=== PATIENT | male | born 1950 | race Caucasian/White ===

== ENCOUNTER 2022-08-27 14:43 | Outpatient (REF) | payer MEDICARE, MEDICAID, SELFPAY ==
--- NOTE | ~2022-08-27 | XR_ITS ---
EXAMINATION: XR ANKLE, LEFT CLINICAL INFORMATION: Tripped with left foot pain and swelling. COMPARISON: None available. TECHNIQUE: AP and lateral views of the left ankle. FINDINGS: There is soft tissue swelling seen about the lateral malleolus. No acute fracture or dislocation is evident. Mortise appears intact. Vascular calcifications present. Small Achilles calcaneal spur seen. There is some spurring seen dorsum of the proximal navicula. XR/XR ankle LT 2V IMPRESSION: Soft tissue swelling without evidence of acute fracture on this 2-view study.
== END 2022-08-27 14:44 | disposition home or self-care (01) ==
LOC: HO.HHCX 14:43
PROVIDERS: PCP Internal Medicine; Visit Provider Internal Medicine
DX: M79.672 Pain in left foot (principal)
CPT/HCPCS: 73600

== ENCOUNTER 2022-11-12 15:21 | Outpatient (REF) | payer MEDICARE, MEDICAID, SELFPAY ==
[2022-11-12 17:44] LABS: MANUAL DIFF FLAG NO
[2022-11-12 17:58] LABS: Basophils Percent Auto 0.6 % (0-2); Eosinophils Absolute Auto 0.1 X10*3/uL (0.0-0.4); Hematocrit 42.7 % (42.0-52.0); Hemoglobin 14.5 g/dl (14.0-18.0); Imm Gran Abs Auto 0.02 X10*3/uL (0.00-0.03); Imm Gran Pct Auto 0.4 % (0.0-0.4); Lymphocytes Absolute Auto 1.1 X10*3/uL (1.2-4.9); Lymphocytes Percent Auto 20.6 % (20-40); Mean Corpuscular Hemoglobin 31.3 pg (27.0-33.0); Mean Corpuscular Volume 92.2 fL (80.0-98.0); Monocytes Absolute Auto 0.4 X10*3/uL (0.1-1.2); Monocytes Percent Auto 7.2 % (2-11); Neutrophils Absolute Auto 3.7 x10*3/uL (2.0-8.3); Neutrophils Percent Auto 69.2 % (45-73); Platelet Count 181 X10*3/uL (160-400); Red Blood Count 4.63 X10*6/uL (4.60-5.80); Red Cell Distribution Width 12.3 % (11.0-16.0); White Blood Count 5.4 X10*3/uL (4.8-10.8)
[2022-11-12 18:50] LABS: Alanine Aminotransferase 11 U/L (0-40); Albumin Level 4.3 g/dL (3.5-5.0); Alkaline Phosphatase 75 U/L (39-117); Anion Gap 17 (12-20); Aspartate Amino Transferase 14 U/L (5-37); Blood Urea Nitrogen 16 mg/dL (9-16); Calcium 10.1 mg/dL (8.4-10.2); Carbon Dioxide 28 mmol/L (22-29); Chloride 99 mmol/L (96-108); Cholesterol 207 mg/dL; Estimated Glomerular Filt Rate > 60; Glucose Fasting 82 mg/dL (60-99); HDL Cholesterol 47 mg/dL; LDL Cholesterol Calculated 128 mg/dl; Potassium 3.8 mmol/L (3.3-5.1); Sodium 140 mmol/L (135-145); Total Protein 7.8 g/dL (6.5-8.0); Triglycerides 162 mg/dL
[2022-11-12 18:52] LABS: Prostate Specific Antigen 5.19 ng/mL (<0.05-4.0)
[2022-11-12 18:59] LABS: Bilirubin Total 1.3 mg/dL (0.0-1.0)
== END 2022-11-12 15:22 | disposition home or self-care (01) ==
LOC: HO.CHCLDS 15:21
PROVIDERS: Visit Provider Internal Medicine
DX: Z00.00 Encounter for general adult medical examination without abnormal findings (principal); Z12.5 Encounter for screening for malignant neoplasm of prostate; E78.00 Pure hypercholesterolemia, unspecified; I10 Essential (primary) hypertension
CPT/HCPCS: 36415; 80053; 80061; 84153; 84443; 85025

== ENCOUNTER 2024-07-20 14:00 | Outpatient (REF) | payer MEDICARE, MEDICAID, SELFPAY ==
[2024-07-20 18:03] LABS: Anion Gap 14 (12-20); Blood Urea Nitrogen 26 mg/dL (9-16); Calcium 9.7 mg/dL (8.4-10.2); Carbon Dioxide 31 mmol/L (22-29); Chloride 98 mmol/L (96-108); Estimated Glomerular Filt Rate 46; Glucose Random 92 mg/dL (60-115); Potassium 3.2 mmol/L (3.3-5.1); Sodium 140 mmol/L (135-145)
== END 2024-07-20 14:01 | disposition home or self-care (01) ==
LOC: HO.CHCLDS 14:00
PROVIDERS: PCP Internal Medicine; Visit Provider Nurse Practitioner
DX: I10 Essential (primary) hypertension (principal)
CPT/HCPCS: 36415; 80048

== ENCOUNTER 2024-08-20 15:17 | Outpatient (REF) | payer MEDICARE, MEDICAID, SELFPAY ==
--- OUTSIDE RECORDS SUMMARY | 2024-08-20 18:00 | XMS_ITS | Encounter Summary ---
Author Organization [employer] Address [address] [place] [address] 7 [place] [address] Care Team Providers Care Bulbs Farmworker Name Role Phone Babatunde Oliva MD Primary Care Provider Encounter Details Date Type Department Care Team (Late st Contact Info) Description 07/23/2022 Orders Only [facility] MED & PEDS [address] [place] [address] Susan Cedeno LPN Social History Tobacco Use Types Packs/Day Years Used Date Smoking Tobacco: Never Assessed Sex and Gender Information Value Date Recorded Sex Assigned at Male 02/26/2022 10:21 AM EDT Legal Sex Male 10:21 AM EDT Gender Identity Male 02/26/2022 10:21 AM EDT Sexual Orientation Straight 02/26/2022 10 :21 AM EDT documented as of this encounter Plan of Treatment Upcoming Encounters Date Type Department Care Team (Late st Contact Info) Description 11/20/2024 3:30 PM EDT Office Visit [facility] MED & PEDS [address] [place] [address] Babatunde Oliva MD [address] [place] [address] documented as of this encounter Visit Diagnoses Not on filedocumented in this encounter Care Teams Bulbs Farmworker Relationship Specialty Start Date End Date Babatunde Oliva MD [address] [place] [address] PCP - General Internal Medicine 04/29/18 documented as of this encounter
--- OUTSIDE RECORDS SUMMARY | 2024-08-20 18:00 | XMS_ITS | Encounter Summary ---
Author Organization [employer] Address [address] [place] [address] 7 [place] [address] Care Team Providers Care Route Deliverer Name Role Phone Babatunde Oliva MD Primary Care Provider [phone]- [phone] Encounter Details Date Type Department Care Team (Latest Contact Info) Description 10/21/2018 Abstract [facility] CONVERSIONS Dental, Provider, DDS Social History Tobacco Use Types Packs/Day Years [...] Description 11/20/2024 3:30 PM EDT Office Visit [facility] MED & PEDS [address] [place] [address] Babatunde Oliva MD [address] [place] [address] documented as of this encounter Visit Diagnoses Not on filedocumented in this encounter Care Teams Route Deliverer Relationship Specialty Start Date End Date Babatunde Oliva MD [address] [place] [address] PCP - General Internal Medicine 04/29/18 documented as of this encounter
--- OUTSIDE RECORDS SUMMARY | 2024-08-20 18:00 | XMS_ITS | Encounter Summary ---
Author Organization [employer] Address [address] [place] [address] 7 [place] [address] Care Team Providers Care General Assembler Installer Name Role Phone Babatunde Oliva MD Primary Care Provider [phone]- [phone] Reason for Referral * Medications - Pending Review Specialty Diagnoses / Procedures Referred By Last t Referred To Contact Diagnoses Dysuria Babatunde Oliva MD [address] [place] [address] Phone: tel: fax: Referral ID Status Reason Start Date Expiration Date V isits Requested Visits Authorized [id number] Pending Review 1 1 Encounter Details Date Type Department Care Team ([facility] st Contact Info) Description 08/11/2024 Orders Only [facility] MED & PEDS [address] [place] [address] Babatunde Oliva MD [address] [place], [place] [phone] Dysuria Social History Tobacco Use Types Packs/Day Years Used Date Smoking Tobacco: Former Cigarettes 1 10 Passive Smoke Exposure: Never Smokeless Tobacco: Never Comments:Quit smoking more t west 40 years ago. Alcohol Use Standard Drinks/Week Comments Yes 2 (1 standard drink = 0.6 oz pur e alcohol) Depression Answer Date Recorded Patient Health Questionnaire-9 Score 0 11/12/2022 Depression Answer Date Recorded Patient Health Questionnaire-2 Score 0 11/12/2022 Sex and Gender Information Value Date Recorded Sex Assigned at Male 02/26/2022 10:21 AM EDT Legal Sex Male 10:21 AM EDT Gender Identity Male 02/26/2022 10:21 AM EDT Sexual Orientation Straight 02/26/2022 10 :21 AM EDT documented as of this encounter Plan of Treatment Upcoming Encounters Date Type Department Care Team (Late st Contact Info) Description 11/20/2024 3:30 PM EDT Office Visit [facility] MED & PEDS [address] [place] [address] Babatunde Oliva MD [address] [place] [address] documented as of this encounter Visit Diagnoses Diagnosis Dysuria documented in this encounter Additional Health Concerns Assessment Noted Time PHQ-9 Depression Total Score: 0 11/13/19 23 3:12 PM EDT documented as of this encounter Care Teams General Assembler Installer Relationship Specialty Start Date End Date Babatunde Oliva MD [address] [place] [address] PCP - General Internal Medicine 04/29/18 documented as of this encounter
--- OUTSIDE RECORDS SUMMARY | 2024-08-20 18:00 | XMS_ITS | Encounter Summary ---
Author Organization [employer] Address [address] [place] [address] [address]t [place] [address] Care Team Providers Care City Planner Name Role Phone Babatunde Oliva MD Primary Care Provider Encounter Details Date Type Department Care Team (Late Contact Info) Description 07/23/2024 Orders Only [facility] MEDICINE [address] [place] [address] Babatunde Oliva MD [address] [place], [place] [phone] Hypokalemia (Primary Dx) Social History Tobacco Use Types Packs/Day Years [...] Encounters Date Type Department Care Team (Late Contact Info) Description 11/20/2024 3:30 PM EDT Office Visit [facility] MED & PEDS [address] [place], [place] [phone] Babatunde Oliva MD [address] [place] [address] documented as of this encounter Visit Diagnoses Diagnosis Hypokalemia- Primary Hypopotassemia documented in this encounter Additional Health Concerns Assessment Noted Time PHQ-9 Depression Total Score: 0 11/13/19 23 3:12 PM EDT documented as of this encounter Care Teams City Planner Relationship Specialty Start Date End Date Babatunde Oliva MD [address] [place] [address] [place] [address] PCP - General Internal Medicine 04/29/18 documented as of this encounter
--- OUTSIDE RECORDS SUMMARY | 2024-08-20 18:00 | XMS_ITS | Encounter Summary ---
Author Organization [employer] Address [address] [place] [address] 7t [place] [address] Care Team Providers Care Director Of Accreditation Name Role Phone Babatunde Oliva MD Primary Care Provider +1- [phone] Reason for Visit * Reason Onset Date Comments callback requested 03/31/2024 Encounter Details Date Type Department Care Team ([facility] st Contact Info) Description 03/31/2024 Telephone [facility] MEDICINE [address] [place] [address] Babatunde lOiva MD [address] [place] [address] callback requested Social History Tobacco Use Types Packs/Day Years [...] AM EDT documented as of this encounter Miscellaneous Notes * Telephone Encounter - Gulshan Waller - 03/31/2024 9:59 AM EST Tc from pt requesting a callback due to canceling apt from today 03/31/2024 , pt informed he's currently with no transportation. Callback number [phone] documented in this encounter Plan of Treatment Upcoming Encounters Date Type Department Care Team ([facility] st Contact Info) Description 11/20/2024 3:30 PM EDT Office Visit [facility] MED & PEDS [address] [place] [address] Babatunde Oliva MD [address] [place] [address] documented as of this encounter Visit Diagnoses Not on filedocumented in this encounter Additional Health Concerns Assessment Noted Time PHQ-9 Depression Total Score: 0 11/13/19 23 3:12 PM EDT documented as of this encounter Care Teams Director Of Accreditation Relationship Specialty Start Date End Date Babatunde Oliva MD [address] [place] [address] PCP - General Internal Medicine 04/29/18 documented as of this encounter
--- OUTSIDE RECORDS SUMMARY | 2024-08-20 18:00 | XMS_ITS | Clinical Summary ---
Author Organization [employer] Address [address] [place] [address] 7 [place] [address] Care Team Providers Care Flange Machine Operator Name Role Phone Babatunde Oliva MD Primary Care Provider Allergies No known active allergies Medications atorvastatin (Lipitor) 40 MG tablet 04/30/19 23 Active cyanocobalamin (Vitamin B-12) 100 MCG tablet Take 1 tablet by mouth in the morning. 02/03/20 22 Active Diclofenac Sodium (Voltaren) 1 % gelIndications: Left foot pain To apply to the affected area 2 times a day. 100 g 08/28/19 23 Active omeprazole (PriLOSEC) [address] capsule 07/23/19 23 Active omeprazole (PriLOSEC) [address] capsule TAKE 1 CAPSULE BY MOUTH TWICE DAILY BEFORE A MEAL 180 capsule 3 11/05/19 24 Active atropine 1 % ophthalmic solution Administer 1 drop into the left eye 3 times daily. 15 mL 12/05/19 24 025 Active losartan (Cozaar) 25 MG tabletIndicatio ns:Primary hypertension TAKE 1 TABLET(25 MG) BY MOUTH DAILY 90 tablet 3 07/18/19 25 Active hydroCHLOROthia zide 12.5 MG tablet TAKE 1 TABLET(12.5 MG) BY MOUTH EVERY DAY 90 tablet 1 08/08/19 25 Active cyanocobalamin (Vitamin B-12) 100 MCG tablet TAKE 1 TABLET BY MOUTH EVERY DAY 90 tablet 1 08/08/19 25 Active atorvastatin (Lipitor) 40 MG tablet TAKE 1 TABLET BY MOUTH EVERY NIGHT AT BEDTIME 90 tablet 1 08/08/19 25 Active potassium chloride CR (Klor-Con M20) 20 MEQ ER tabletIndicatio ns:Hypokalemia Take 1 tablet (20 mEq) by mouth Once per day. Do not crush or chew. 20 tablet 08/12/19 25 026 Active tadalafil (Cialis) 5 MG tabletIndicatio ns:Dysuria Take 1 tablet (5 mg) by mouth Once per day. 10 tablet 08/12/19 25 025 Active hydroCHLOROthia zide (HYDRODiuril) 12.5 MG tablet Take 1 tablet (12.5 mg) by mouth in the morning. 90 tablet 3 02/07/20 23 025 Discontinued(S shirin effects) hydroCHLOROthia zide (HYDRODiuril) 12.5 MG tablet TAKE 1 TABLET(12.5 MG) BY MOUTH EVERY DAY 90 tablet 1 08/06/19 24 025 Discontinued atorvastatin (Lipitor) 40 MG tablet TAKE 1 TABLET BY MOUTH EVERY NIGHT AT BEDTIME 90 tablet 1 02/03/20 24 025 Discontinued cyanocobalamin (Vitamin B-12) 100 MCG tablet TAKE 1 TABLET BY MOUTH EVERY DAY 90 tablet 1 02/03/20 24 025 Discontinued doxazosin (Cardura) 4 MG tabletIndicatio ns:Lower urinary tract symptoms (LUTS) TAKE 1 TABLET(4 MG) BY MOUTH AT BEDTIME 90 tablet 3 05/08/19 025 Discontinued(S shirin effects) potassium chloride CR (Klor-Con M20) 20 MEQ ER tabletIndicatio ns:Hypokalemia Take 1 tablet (20 mEq) by mouth Once per day. Do not crush or chew. 20 tablet 07/24/19 025 Discontinued(R eorder (will not trigger notification to Pharmacy)) tadalafil (Cialis) 5 MG tabletIndicatio ns:Dysuria Take 1 tablet (5 mg) by mouth Once per day. 10 tablet 08/12/19 025 Discontinued(R eorder (will not trigger notification to Pharmacy)) Active Problems Problem Noted Date Diagnosed Date Benign prostatic hyperplasia 06/25/2014 Hiatal hernia 06/25/2014 Hypercholesterolemia 06/25/2014 Hypertensive disorder 06/25/2014 Encounters Date Type Department Care Team Description 08/11/2024 11:15 AM EDT Office Visit [facility] MED & PEDS [address] [place] [address] Babatunde Oliva MD Dysuria (Primary Dx); Hypokalemia; Drug eruption 08/11/2024 Orders Only [facility] MED & PEDS [address] [place] [address] Babatunde Oliva MD Dysuria 08/11/2024 Travel 08/05/2024 Refill [facility] MED & PEDS [address] [place] [address] Babatunde Oliva MD 08/05/2024 Refill [facility] MED & PEDS [address] [place] [address] Shwetha Eugene MD 07/29/2024 2:45 PM EDT Clinical Support [facility] MED & PEDS [address] [place] [address] Karen Goss RN Primary hypertension 07/29/2024 Travel 07/23/2024 Telephone [facility] MED[facility] [address] [place] [address] Babatunde Oliva MD 07/23/2024 Telephone [facility] MED & PEDS [address] [place] [address] Babatunde Oliva MD 07/23/2024 Orders Only [facility] MED[facility] [address] [place] [address] Babatunde Oliva MD Hypokalemia (Primary Dx) 07/15/2024 4:20 PM EDT Office Visit [facility] [address] [place] [address] Primary hypertension (Primary Dx) 07/15/2024 Refill [facility] [address] [place] [address] Daly Wilder NP Primary hypertension 07/15/2024 Telephone [facility] MED & PEDS [address] [place] [address] Babatunde Oliva MD 07/10/2024 Population Health Risk Score Community [facility] () Department [address] [place] [phone] Provider, Population Health Generic 06/16/2024 Travel 06/16/2024 Telephone [facility] MED & PEDS [address] [place] [address] Babatunde Oliva MD No Show from Last 3 Months Social History Tobacco Use Types Packs/Day Years Used Date Smoking Tobacco: Former Cigarettes 1 10 Passive Smoke Exposure: Never Smokeless Tobacco: Never Tobacco Cessation:Counseling Given: Not Answered Comments:Quit smoking more than 40 years ago. Alcohol Use Standard Drinks/Week [...] Orientation Straight 02/26/2022 10 :21 AM EDT Last Filed Vital Signs Vital Sign Reading Time Taken Comments Blood Pressure 113/62 08/11/2024 11:05 AM EDT Pulse 78 08/11/2024 11:05 AM EDT Temperature 36.4 ??C (97.5 ??F) 08/11/2024 1 1:05 AM EDT Respiratory Rate 20 08/11/2024 11:0 5 AM EDT Oxygen Saturation 98% 08/11/2024 11: 05 AM EDT Inhaled Oxygen Concentration - - Weight 71.6 kg (157 lb 12.8 oz) 025 11:05 AM EDT Height 168 cm (5' 6.14 ) 08/11/2024 11: 05 AM EDT Body Mass Index 25.36 08/11/2024 11:05 AM EDT Plan of Treatment Upcoming Encounters Date Type Department Care Team ([facility] st Contact Info) Description 11/20/2024 3:30 PM EDT Office Visit [facility] MED & PEDS [address] [place] [address] Babatunde Oliva MD [address] [place] [address] Health Maintenance Due Date Last Done Comments CT Colonography 1952 Colonoscopy 1952 Colorectal Cancer Screening 1952 FIT DNA/Cologuard 1952 FIT 1952 FOBT 1952 SDOH Screening 1952 Sigmoidoscopy 1952 Alcohol/Substance Use Screening 1964 Hepatitis C Screening 01/24/1970 DTaP/Tdap/Td Vaccines (1 - Tdap) 01/24/1971 Pneumococcal Vaccine: 50+ Years (1 of 1 - PCV) 01/24/2002 Zoster Vaccines (1 of 2) 01/24/2002 Dental X-Ray: Full Mouth 04/19/2014 04/18/2011 Dental X-Ray: Bitewings 04/16/2019 04/15/20 18, 03/27/2017, 04/18/2011 Dental Oral Exam 03/14/2023 09/10/2022, , 04/15/2018, Additional history exists Dental Prophylaxis 09/24/2023 03/25/2023, 0 09/10/2022, 04/24/2019, Additional history exists Depression Screening 11/13/2023 11/12/2022, 11/13/19 23 COVID-19 Vaccine ( season) 2023 02/27/2021, 08/02/2020, 07/05/2020 Influenza Vaccine (#1) 2023 , 04/27/2019, 02/13/2018 Tobacco Screening 08/11/2025 08/11/2024 RSV Patients and Patients Aged 60 years or older (1 - 1-dose 75+ series) 01/24/2027 Lipid Panel 11/13/2027 11/12/2022, 08/17/2021 HIB Vaccines Aged Out No longer eligi ble based on patient's age to complete this topic HPV Vaccines Aged Out No longer eligi ble based on patient's age to complete this topic Hepatitis A Vaccines Aged Out No long er eligible based on patient's age to complete this topic Hepatitis B Vaccines Aged Out No long er eligible based on patient's age to complete this topic IPV Vaccines Aged Out No longer eligi ble based on patient's age to complete this topic Meningococcal Vaccine Aged Out No mahsa mitzy eligible based on patient's age to complete this topic RSV under 20 months Aged Out No longe r eligible based on patient's age to complete this topic Rotavirus Vaccines Aged Out No longer eligible based on patient's age to complete this topic Procedures Procedure Name Priority Date/Time Associated Diagnosis Comments BASIC METABOLIC PANEL Routine 07/20/2024 2:05 PM EDT Primary hypertension Full PROPHYLAXIS - ADULT Routine 03/25/2023 2:00 PM EST LIPID PANEL, STANDARD Routine 11/12/2022 3:27 PM EDT PERIODIC ORAL EVALUATION - ESTABLISHED PATIENT Routine 09/10/2022 3:00 PM EDT Alveolar bone loss with cratering History of periodontal disease BITEWINGS - 4 RADIOGRAPHIC IMAGES Routine 04/15/2018 12:00 AM EST INTRAORAL - COMPLETE SERIES OF RADIOGRAPHIC IMAGES Routine 04/18/2011 12:00 AM EST from Last 3 Months or Most Recently Relevant to Health Maintenance Results * (ABNORMAL) Basic Metabolic Panel (07/20/2024 2:05 PM EDT) Sodium 140 135 - 145 mmol/L [facility] Potassium 3.2(L) 3.3 - 5.1 mmol/L [facility] Chloride 98 96 - 108 mmol/L [facility] Carbon Dioxide 31(H) 22 - 29 mmol/L [facility] Anion Gap 14 12 - 20 [facility] Urea Nitrogen (BUN) 26(H) 9 - 16 mg/dL [facility] Creatinine, Serum 1.51(H) 0.5 - 1.4 mg/dL [facility] Estimated Glomerular Filt Rate 46 [facility] Comment:Chronic Kidney Disea se: Estimated GFR < 60 mL/min/[id number] Kidney Disease: Estimated GFR < 15 mL/min/1.73m2 Glucose 92 60 - 115 mg/dL [facility] Calcium 9.7 8.4 - 10.2 mg/dL [facility] Blood Venous blood specimen / Unknown 07/20/2024 2:05 PM EDT 07/20/2024 5:43 PM EDT Daly Wilder AIRSET MOLDER LAB BLOOD ORDERABLES Final Resu lt Performing Organization Address [facility]/ZIP Co de Phone Number [facility] [address] [place] [address] [phone] * Lipid Panel, Standard (11/12/2022 3:27 PM EDT) Triglycerides 162 mg/dL [facility] Comment:Desirable Triglyceri de: less than 150 mg/dLBorderline High Triglyceride 150-199 mg/dLHigh Triglyceride: 200-499 mg/dLVery High Triglyceride: greater than or equal to 5OO mg/dL Cholesterol 207 mg/dL [facility] Comment:Desirable Cholestero l: less than 200 mg/dLBorderline High Cholesterol: 200-239 mg/dLHigh Cholesterol: greater than 239 mg/dL LDL Cholesterol Calculated 128 mg/dl [facility] Comment:Desirable LDL: less than 100 mg/dLNear Optimal/Above Optimal LDL: 110- 129 mg/dLBorderline High LDL: 130-159 mg/dLHigh LDL: 160-189 mg/dLVery High LDL: greater than or equal to 190 mg/dL HDL Cholesterol 47 mg/dL [facility] Comment:Desirable HDL: great er than 40 mg/dL Note: This HDL assay may give artificially low results in patients with liver disease. 11/12/2022 3:27 PM EDT 11/12/2022 5:41 PM EDT [facility] External Provider LAB BLO OD ORDERABLES Final Result Performing Organization Address [facility]/ZIP Co de Phone Number [facility] [address] [place] [address] [phone] from Last 3 Months or Most Recently Relevant to Health Maintenance Insurance [facility] STANDARD MEDICARE [facility] STAND ADULT Care Teams Flange Machine Operator Relationship Specialty Start Date End Date Babatunde Oilva MD [address] [place] [phone] PCP - General Internal Medicine 04/29/18
--- OUTSIDE RECORDS SUMMARY | 2024-08-20 18:00 | XMS_ITS | Encounter Summary ---
Author Organization [employer] Address [address] [place] [address] 7 [place] [address] Care Team Providers Care Cam Maker Name Role Phone Babatunde Oliva MD Primary Care Provider Encounter Details Date Type Department Care Team (Late Contact Info) Description 11/01/2022 Orders Only [facility] MED & PEDS [address] [place] [address] Susan Cedeno LPN Social History Tobacco Use Types Packs/Day Years Used Date Smoking Tobacco: Former Cigarettes 1 10 Passive Smoke Exposure: Never Smokeless Tobacco: Never Comments:Quit smoking more t west 40 years ago. Alcohol Use Standard Drinks/Week Comments Yes 2 (1 standard drink = 0.6 oz pur e alcohol) Sex and Gender Information Value Date Recorded Sex Assigned at Male 02/26/2022 10:21 AM EDT Legal Sex Male 10:21 AM EDT Gender Identity Male 02/26/2022 10:21 AM EDT Sexual Orientation Straight 02/26/2022 10 :21 AM EDT documented as of this encounter Plan of Treatment Upcoming Encounters Date Type Department Care Team (Late st Contact Info) Description 11/20/2024 3:30 PM EDT Office Visit [facility] MED & PEDS [address] [place] [address] Babatunde Oliva MD [address] [place] [address] documented as of this encounter Visit Diagnoses Not on filedocumented in this encounter Care Teams Cam Maker Relationship Specialty Start Date End Date Babatunde Oliva MD [address] [place] [address] PCP - General Internal Medicine 04/29/18 documented as of this encounter
[2024-08-20 18:16] LABS: Anion Gap 9 (12-20); Blood Urea Nitrogen 19 mg/dL (9-16); Calcium 9.7 mg/dL (8.4-10.2); Carbon Dioxide 30 mmol/L (22-29); Chloride 108 mmol/L (96-108); Estimated Glomerular Filt Rate 55; Glucose Random 86 mg/dL (60-115); Potassium 5.1 mmol/L (3.3-5.1); Sodium 142 mmol/L (135-145)
== END 2024-08-20 15:18 | disposition home or self-care (01) ==
LOC: HO.CHCLDS 15:17
PROVIDERS: Visit Provider Internal Medicine
DX: E87.6 Hypokalemia (principal)
CPT/HCPCS: 36415; 80048

== ENCOUNTER 2025-01-11 14:50 | Outpatient (REF) | payer MEDICARE, MEDICAID, SELFPAY ==
--- OUTSIDE RECORDS SUMMARY | 2025-01-11 14:30 | XMS_ITS | Encounter Summary ---
Author Organization [employer] Address [address] [place] [address] 7[address] [place] [address] Care Team Providers Care Cotton Classer Name Role Phone Babatunde Oliva MD Primary Care Provider [phone] Reason for Visit * Reason Comments Hypertension Encounter Details Date Type Department Care Team ([facility] st Contact Info) Description 01/11/2025 2:30 PM EDT Office Visit [facility] MED & PEDS [address] [place], [place] [phone] Babatunde Oliva MD [address] [place] [address] Primary hypertension (Primary Dx); Hypokalemia; Benign prostatic hyperplasia without lower urinary tract symptoms; Dietary counseling; Exercise counseling; Overweight Social History Tobacco Use Types Packs/Day Years Used Date Smoking Tobacco: Former Cigarettes 1 10 Passive Smoke Exposure: Never Smokeless Tobacco: Never Comments:Quit smoking more t west 40 years ago. Alcohol Use Standard Drinks/Week Comments Yes 2 (1 standard drink = 0.6 oz pur e alcohol) Depression Answer Date Recorded Patient Health Questionnaire-9 Score 0 11/12/2022 Housing Stability Answer Date Recorded What is your housing situation today? I have martha hudson 01/11/[address] you li ve. Do you have problems with any of the following? None of the above 01/11/2025 Food Insecurity Answer Date Recorded Within the past 12 months, y ou worried that your food would run out before you got money to buy more: Never True 01/11/2025 Within the past 12 months,th e food you bought just didn't last and you didn't have enough money to get more: Never True Transportation Answer Date Recorded In the past 12 months, has l ack of transportation kept you from medical appts, meetings, work or from getting things needed for daily living? No 01/11/2025 Utilities Answer Date Recorded In the past 12 months, has t he electric, gas, oil or water company threatened to shut off services in your home? No 01/11/2025 Depression Answer Date Recorded Patient Health Questionnaire-2 Score 0 11/12/2022 Internet Access Answer Date Recorded Internet Access Q1 Yes 01/11/2025 Internet Access Q2 Not on file 01/11/2025 Sex and Gender Information Value Date Recorded Sex Assigned at Male 02/26/2022 10:21 AM EDT Legal Sex Male 10:21 AM EDT Gender Identity Male 02/26/2022 10:21 AM EDT Sexual Orientation Straight 02/26/2022 10 :21 AM EDT documented as of this encounter Last Filed Vital Signs Vital Sign Reading Time Taken Comments Blood Pressure 140/73 01/11/2025 2:23 PM EDT Pulse 86 01/11/2025 2:23 PM EDT Temperature 36.8 C (98.2 F) 01/11/2025 2:23 PM EDT Respiratory Rate 20 01/11/2025 2:23 PM EDT Oxygen Saturation 96% 01/11/2025 2:23 PM EDT Inhaled Oxygen Concentration - - Weight 73 kg (161 lb) 01/11/2025 2:23 PM EDT Height 168 cm (5' 6.14 ) 01/11/2025 2:23 PM EDT Body Mass Index 25.88 01/11/2025 2:23 PM EDT documented in this encounter Progress Notes * Babatunde Oliva MD - 01/11/2025 2:30 PM EDT SUBJECTIVE Kory Ogden is a 74 y.o. male who presents for Hypertension. Hypertension This is a chronic problem. The problem is controlled. Pertinent negatives include no anxiety, blurred vision, chest pain, headaches, malaise/fatigue, neck pain, orthopnea, palpitations, peripheral edema, PND, shortness of breath or sweats. Risk factors for coronary artery disease include male gender and sedentary lifestyle. There is no history of angina, kidney disease, CAD/SC, CVA, heart failure, left ventricular hypertrophy, PVD or retinopathy. Mr. Kory Ogden feels overall well. Has no concerns today. Denies any acute events since his last visit in the office Problem List[1] Allergies[2] Medications Ordered Prior to Encounter[3] Review of Systems Constitutional: Negative for malaise/fatigue. Eyes: Negative for blurred vision. Respiratory: Negative for shortness of breath. Cardiovascular: Negative for chest pain, palpitations, orthopnea and PND. Musculoskeletal: Negative for neck pain. Neurological: Negative for headaches. OBJECTIVE Vitals: 01/11/25 1423 BP: (!) 140/73 BP Location: Left arm Patient Position: Sitting BP Cuff Size: Adult Pulse: 86 Resp: 20 Temp: 98.2 ??F (36.8 ??C) TempSrc: Oral SpO2: 96% Weight: 161 lb (73 kg) Height: 5' 6.14 (1.68 m) Physical Exam Constitutional: General: He is not in acute distress. Appearance: Normal appearance. He is not ill-appearing, toxic-appearing or diaphoretic. Cardiovascular: Rate and Rhythm: Normal rate. Pulmonary: Effort: Pulmonary effort is normal. Musculoskeletal: General: Normal range of motion. Cervical back: Normal range of motion. Neurological: General: No focal deficit present. Mental Status: He is alert. Assessment/Plan Assessment/Plan Diagnoses and all orders for this visit: Primary hypertension Comments: The blood pressure is stable No change DASH diet Orders: - Hepatitis C Antibody with Reflex to HCV, RNA, Quantitative, Real-Time PCR; Future Hypokalemia Comments: Repeat BMP Patient will be contacted with results. Orders: - Basic Metabolic Panel; Future - Hepatitis C Antibody with Reflex to HCV, RNA, Quantitative, Real-Time PCR; Future Benign prostatic hyperplasia without lower urinary tract symptoms Comments: No lower urinary tract symptoms Continue with doxazosin 8 mg Orders: - Hepatitis C Antibody with Reflex to HCV, RNA, Quantitative, Real-Time PCR; Future Dietary counseling - Hepatitis C Antibody with Reflex to HCV, RNA, Quantitative, Real-Time PCR; Future Exercise counseling - Hepatitis C Antibody with Reflex to HCV, RNA, Quantitative, Real-Time PCR; Future Overweight - Hepatitis C Antibody with Reflex to HCV, RNA, Quantitative, Real-Time PCR; Future Mr. Kory Ogden is not interested in getting the pneumonia vaccine, the tetanus shot, influenza vaccine. He is not also interested in getting screened for colon cancer for personal reason. [1] Patient Active Problem List Diagnosis Benign prostatic hyperplasia Hiatal hernia Hypercholesterolemia Hypertensive disorder [2] Allergies Allergen Reactions Tamsulosin Rash [3] Current Outpatient Medications on File Prior to Visit Medication Sig Dispense Refill atorvastatin (Lipitor) 40 MG tablet atorvastatin (Lipitor) 40 MG tablet TAKE 1 TABLET BY MOUTH EVERY NIGHT AT BEDTIME 90 tablet 1 cyanocobalamin (Vitamin B-12) 100 MCG tablet Take 1 tablet by mouth in the morning. cyanocobalamin (Vitamin B-12) 100 MCG tablet TAKE 1 TABLET BY MOUTH EVERY DAY 90 tablet 1 Diclofenac Sodium (Voltaren) 1 % gel To apply to the affected area 2 times a day. 100 g 0 doxazosin (Cardura) 8 MG tablet Take 1 tablet (8 mg) by mouth at bedtime. 90 tablet 3 hydroCHLOROthiazide 12.5 MG tablet TAKE 1 TABLET(12.5 MG) BY MOUTH EVERY DAY 90 tablet 1 losartan (Cozaar) 25 MG tablet TAKE 1 TABLET(25 MG) BY MOUTH DAILY 90 tablet 3 omeprazole (PriLOSEC) [address] capsule omeprazole (PriLOSEC) [address] capsule TAKE 1 CAPSULE BY MOUTH TWICE DAILY BEFORE A MEAL 180 capsule 0 potassium chloride CR (Klor-Con M20) 20 MEQ ER tablet Take 1 tablet (20 mEq) by mouth Once per day.Do not crush or chew. 20 tablet 0 tadalafil (Cialis) 5 MG tablet Take 1 tablet (5 mg) by mouth Once per day. 10 tablet 0 No current facility-administered medications on file prior to visit. documented in this encounter Plan of Treatment Scheduled Orders Name Type Priority Associated Diagnoses Orde r Schedule Hepatitis C Antibody with Reflex to HCV, RNA, Quantitative, Real-Time PCR Lab Routine Primary hypertension Hypokalemia Benign prostatic hyperplasia without lower urinary tract symptoms Dietary counseling Exercise counseling Overweight Expected: 01/11/2025, Expires: 01/11/2026 documented as of this encounter Procedures Procedure Name Priority Date/Time Associated Diagnosis Comments BASIC METABOLIC PANEL Routine 01/11/2025 2:52 PM EDT Hypokalemia documented in this encounter Results * (ABNORMAL) Basic Metabolic Panel (01/11/2025 2:52 PM EDT) Sodium 143 135 - 145 mmol/L [facility] Potassium 4.6 3.3 - 5.1 mmol/L [facility] Chloride 108 96 - 108 mmol/L [facility] Carbon Dioxide 29 22 - 29 mmol/L [facility] Anion Gap 11(L) 12 - 20 [facility] Urea Nitrogen (BUN) 19(H) 9 - 16 mg/dL [facility] Creatinine, Serum 1.52(H) 0.5 - 1.4 mg/dL [facility] Estimated Glomerular Filt Rate 45 [facility] Comment:Chronic Kidney Disea se: Estimated GFR < 60 mL/min/1.50u5Abewff Kidney Disease: Estimated GFR < 15 mL/min/1.73m2 Glucose 92 60 - 115 mg/dL [facility] Calcium 9.4 8.4 - 10.2 mg/dL [facility] Blood Venous blood specimen / Unknown 01/11/2025 2:52 PM EDT 01/11/2025 5:25 PM EDT Babatunde Oliva MD LAB BLOOD ORDERABLES Final Result [facility] [address] [place] [address] [phone] documented in this encounter Visit Diagnoses Diagnosis Primary hypertension- Primary Unspecified essential hypertension Hypokalemia Hypopotassemia Benign prostatic hyperplasia without lower urinary tract symptoms Dietary counseling Dietary surveillance and counseling Exercise counseling Overweight documented in this encounter Additional Health Concerns Assessment Noted Time PHQ-9 Depression Total Score: 0 11/13/19 23 3:12 PM EDT documented as of this encounter Care Teams Cotton Classer Relationship Specialty Start Date End Date Babatunde Oliva MD [address] [place] [address] PCP - General Internal Medicine 04/29/18 documented as of this encounter
[2025-01-11 18:02] LABS: Anion Gap 11 (12-20); Blood Urea Nitrogen 19 mg/dL (9-16); Calcium 9.4 mg/dL (8.4-10.2); Carbon Dioxide 29 mmol/L (22-29); Chloride 108 mmol/L (96-108); Estimated Glomerular Filt Rate 45; Potassium 4.6 mmol/L (3.3-5.1); Sodium 143 mmol/L (135-145)
--- OUTSIDE RECORDS SUMMARY | 2025-01-11 20:16 | XMS_ITS | Encounter Summary ---
Author Organization [employer] Address [address] [facility] 7t [place] [address] Care Team Providers Care Field Secretary Name Role Phone Babatunde Oliva MD Primary Care Provider Reason for Visit * Reason Onset Date Comments callback requested 03/31/2024 Encounter Details Date Type Department Care Team ([facility] st Contact Info) Description 03/31/2024 Telephone [facility] MEDICINE [address] [place] [address] Babatunde Oliva MD [address] [place] [address] callback requested Social History Tobacco Use Types [...] he's currently with no transportation. Callback number [phone] documented in this encounter Plan of Treatment Not on file documented as of this encounter Visit Diagnoses Not on filedocumented in this encounter Additional Health Concerns Assessment Noted Time PHQ-9 Depression Total Score: 0 11/13/19 23 3:12 PM EDT documented as of this encounter Care Teams Field Secretary Relationship Specialty Start Date End Date Babatunde Oliva MD [address] [place] [address] PCP - General Internal Medicine 04/29/18 documented as of this encounter
--- OUTSIDE RECORDS SUMMARY | 2025-01-11 20:16 | XMS_ITS | Encounter Summary ---
Author Organization [employer] Address [address] [place] [address] [address] [place] [address] Care Team Providers Care Wealth Management Manager Name Role Phone Babatunde Oliva MD Primary Care Provider Reason for Visit * Reason Onset Date Comments Chart Prep 01/08/2025 Encounter Details Date Type Department Care Team ([facility] st Contact Info) Description 01/08/2025 Telephone [facility] MED & PEDS [address] [place], [place] [phone] Babatunde Oliva MD [address] [place] [address] Chart Prep Social History Tobacco Use Types Packs/Day Years [...] encounter Miscellaneous Notes * Telephone Encounter - Honey Junior [place] - 01/08/2025 2:10 PM EDT Chart Prep Labs: done Images: done Referrals: complete Vaccines due: due Screenings: colonoscopy and STI screening Overdue care gaps: SBIRT and SDOH documented in this encounter Plan of Treatment Not on file documented as of this encounter Visit Diagnoses Not on filedocumented in this encounter Additional Health Concerns Assessment Noted Time PHQ-9 Depression Total Score: 0 11/13/19 23 3:12 PM EDT documented as of this encounter Care Teams Wealth Management Manager Relationship Specialty Start Date End Date Babatunde Oliva MD [address] [place] [address] [place] [address] PCP - General Internal Medicine 04/29/18 documented as of this encounter
--- OUTSIDE RECORDS SUMMARY | 2025-01-11 20:16 | XMS_ITS | Encounter Summary ---
Author Organization [employer] Address [address] [place] [address] [address] [place] [address] Care Team Providers Care Compliance Testing Analyst Name Role Phone Babatunde Oliva MD Primary Care Provider Encounter Details Date Type Department Care Team ([facility] st Contact Info) Description 07/23/2022 Orders Only [facility] CHC MED & PEDS [address] [place] [address] Susan Cedeno LPN Social History Tobacco Use Types Packs/Day Years Used Date Smoking Tobacco: Never Assessed Sex and Gender Information Value Date Recorded Sex Assigned at Male 02/26/2022 10:21 AM EDT Legal Sex Male 10:21 AM EDT Gender Identity Male 02/26/2022 10:21 AM EDT Sexual Orientation Straight 02/26/2022 10 :21 AM EDT documented as of this encounter Plan of Treatment Not on file documented as of this encounter Visit Diagnoses Not on filedocumented in this encounter Care Teams Compliance Testing Analyst Relationship Specialty Start Date End Date Babatunde Oliva MD [address] [place] [address] PCP - General Internal Medicine 04/29/18 documented as of this encounter
--- OUTSIDE RECORDS SUMMARY | 2025-01-11 20:16 | XMS_ITS | Encounter Summary ---
Author Organization [employer] Address [address] [place] [address] [address] [place] [address] Care Team Providers Care Small Business Consultant Name Role Phone Babatunde Oliva MD Primary Care Provider [phone] Reason for Referral * Medications - Closed Specialty Diagnoses / Procedures Referred By Last t Referred To Contact Diagnoses Dysuria Babatunde Oliva MD [address] [place] [address] Phone: tel: fax: Referral ID Status Reason Start Date Expiration Date Visits Re quested Visits Authorized [id number] Closed 1 1 Encounter Details Date Type Department Care Team ([facility] st Contact Info) Description 08/11/2024 Orders Only [facility] CHC MED & PEDS [address] [place], [place] [phone] Babatunde Oliva MD [address] [place], [place] [phone] Dysuria Social History Tobacco Use Types Packs/Day [...] documented as of this encounter Care Teams Small Business Consultant Relationship Specialty Start Date End Date Babatunde Oliva MD [address] [place] [address] PCP - General Internal Medicine 04/29/18 documented as of this encounter
--- OUTSIDE RECORDS SUMMARY | 2025-01-11 20:16 | XMS_ITS | Encounter Summary ---
Author Organization [employer] Address [address] [facility] 7t [place] [address] Care Team Providers Care Male Impersonator Name Role Phone Babatunde Oliva MD Primary Care Provider [phone] Encounter Details Date Type Department Care Team (Latest Contact Info) Description 01/11/2025 Travel Social History Tobacco Use Types Packs/Day Years [...] documented as of this encounter Care Teams Male Impersonator Relationship Specialty Start Date End Date Babatunde Oliva MD [address] [place] [address] PCP - General Internal Medicine 04/29/18 documented as of this encounter
--- OUTSIDE RECORDS SUMMARY | 2025-01-11 20:16 | XMS_ITS | Encounter Summary ---
Author Organization [employer] Address [address] [place] [address] [address] [place] [address] Care Team Providers Care Motion Picture Equipment Supervisor Name Role Phone Babatunde Oliva MD Primary Care Provider Encounter Details Date Type Department Care Team (Latest Contact Info) Description 10/21/2018 Abstract [facility] CONVERSIONS Dental, Provider, DDS Social History [...] on filedocumented in this encounter Care Teams Motion Picture Equipment Supervisor Relationship Specialty Start Date End Date Babatunde Oliva MD [address] [place] [address] PCP - General Internal Medicine 04/29/18 documented as of this encounter
--- OUTSIDE RECORDS SUMMARY | 2025-01-11 20:16 | XMS_ITS | Encounter Summary ---
Author Organization [employer] Address [address] [place] [address] [place] [address] Care Team Providers Care Meter Supervisor Name Role Phone Babatunde Oliva MD Primary Care Provider [phone] Reason for Referral * Consultation (Routine) - Pending Review Specialty Diagnoses / Procedures Referred By Last haskins Referred To Contact Nephrology Diagnoses Decreased GFR CKD stage 3a, GFR 45-59 ml/min ([facility]) Babatunde Oliva MD [address] [place] [address] Phone: tel: fax: Referral ID Status Reason Start Date Expiration Date Visits Requested Visits Authorized [id number] Pending Review Specialty Services Required 01/11/2025 01/11/2026 1 1 * Imaging (Routine) - Pending Review Specialty Diagnoses / Procedures Referred By Last haskins Referred To Contact Radiology Diagnoses Primary hypertension Decreased GFR Procedures US RENAL BI Babatunde Oliva MD [address] [place] [address] Phone: tel: fax: Referral ID Status Reason Start Date Expiration Date V isits Requested Visits Authorized [id number] Pending Review 01/11/2025 01/11/2026 1 1 Encounter Details Date Type Department Care Team ([facility] st Contact Info) Description 01/11/2025 Orders Only [facility] MED & PEDS [address] [place] [address] Babatunde Oliva MD [address] [place] [address] Primary hypertension (Primary Dx); Decreased GFR; CKD stage 3a, GFR 45-59 ml/min ([facility]) Social History Tobacco Use Types Packs/Day Years [...] is your housing situation today? I have marthaesperanza hudson 01/11/[address] you [...] as of this encounter Plan of Treatment Scheduled Orders Name Type Priority Associated Diagnoses Orde r Schedule US RENAL BI Imaging Routine Primary hypertension Decreased GFR Expected: 01/11/2025, Expires: 01/11/2026 Scheduled Referrals Name Type Priority Associated Diagnoses Order Schedule Referral to Nephrology Outpatient Referral Routine Decreased GFR CKD stage 3a, GFR 45-59 ml/min (CMS/HCC) Expected: 01/11/2025 (Approximate), Expires: 01/11/2026 documented as of this encounter Visit Diagnoses Diagnosis Primary hypertension- Primary Unspecified essential hypertension Decreased GFR CKD stage 3a, GFR 45-59 ml/min (CMS/HCC) documented in this encounter Additional Health Concerns Assessment Noted Time PHQ-9 Depression Total Score: 0 11/13/19 23 3:12 PM EDT documented as of this encounter Care Teams Meter Supervisor Relationship Specialty Start Date End Date Babatunde Oliva MD [address] [place] [address] PCP - General Internal Medicine 04/29/18 documented as of this encounter
--- OUTSIDE RECORDS SUMMARY | 2025-01-11 20:17 | XMS_ITS | Encounter Summary ---
Author Organization [employer] Address [address] [place] [address] 7 [place] [address] Care Team Providers Care Excellence Specialist Name Role Phone Babatunde Oliva MD Primary Care Provider Encounter Details Date Type Department Care Team ([facility] st Contact Info) Description 11/01/2022 Orders Only [facility] CHC MED & PEDS [address] [place] [address] Susan Cedeno LPN Social History Tobacco Use [...] on filedocumented in this encounter Care Teams Excellence Specialist Relationship Specialty Start Date End Date Babatunde Oliva MD [address] [place] [address] PCP - General Internal Medicine 04/29/18 documented as of this encounter
--- OUTSIDE RECORDS SUMMARY | 2025-01-11 20:17 | XMS_ITS | Encounter Summary ---
Author Organization [employer] Address [address] [facility] 7t [place] [address] Care Team Providers Care Furnace Process Supervisor Name Role Phone Babatunde Oliva MD Primary Care Provider Encounter Details Date Type Department Care Team (Late st Contact Info) Description 07/23/2024 Orders Only [facility] MEDICINE [address] [place] [address] Babatunde Oliva MD [address] [place], [place] [phone] Hypokalemia (Primary Dx) Social History Tobacco Use [...] documented as of this encounter Care Teams Furnace Process Supervisor Relationship Specialty Start Date End Date Babatunde Oliva MD [address] [place] [address] PCP - General Internal Medicine 04/29/18 documented as of this encounter
--- OUTSIDE RECORDS SUMMARY | 2025-01-11 20:17 | XMS_ITS | Clinical Summary ---
Author Organization [employer] Address [address] [place] [address] [address] [place] [address] Care Team Providers Care Band Tier Name Role Phone Babatunde Oliva MD Primary Care Provider Allergies Active Allergy Reactions Criticality Noted Date Comments Tamsulosin Rash Low 08/27/2024 Medications atorvastatin (Lipitor) 40 MG tablet 3 Active cyanocobalamin (Vitamin B-12) 100 MCG tablet Take 1 tablet by mouth in the morning. 2 Active Diclofenac Sodium (Voltaren) 1 % gelIndications:Le ft foot pain To apply to the affected area 2 times a day. 100 g 3 Active omeprazole (PriLOSEC) [address] capsule 3 Active losartan (Cozaar) 25 MG tabletIndications :Primary hypertension TAKE 1 TABLET(25 MG) BY MOUTH DAILY 90 tablet 3 5 Active hydroCHLOROthiazi de 12.5 MG tablet TAKE 1 TABLET(12.5 MG) BY MOUTH EVERY DAY 90 tablet 1 5 Active cyanocobalamin (Vitamin B-12) 100 MCG tablet TAKE 1 TABLET BY MOUTH EVERY DAY 90 tablet 1 5 Active atorvastatin (Lipitor) 40 MG tablet TAKE 1 TABLET BY MOUTH EVERY NIGHT AT BEDTIME 90 tablet 1 5 Active potassium chloride CR (Klor-Con M20) 20 MEQ ER tabletIndications :Hypokalemia Take 1 tablet (20 mEq) by mouth Once per day. Do not crush or chew. 20 tablet 5 08/12/19 26 Active tadalafil (Cialis) 5 MG tabletIndications :Dysuria Take 1 tablet (5 mg) by mouth Once per day. 10 tablet 5 Active doxazosin (Cardura) 8 MG tabletIndications :BPH with obstruction/lower urinary tract symptoms Take 1 tablet (8 mg) by mouth at bedtime. 90 tablet 3 5 08/28/19 26 Active omeprazole (PriLOSEC) [address] capsule TAKE 1 CAPSULE BY MOUTH TWICE DAILY BEFORE A MEAL 180 capsule 5 Active Active Problems Problem Noted Date Diagnosed Date Benign prostatic hyperplasia 06/25/2014 Hiatal hernia 06/25/2014 Hypercholesterolemia 06/25/2014 Hypertensive disorder 06/25/2014 Encounters Date Type Department Care Team Description 01/11/2025 2:30 PM EDT Office Visit [facility] [address] [place] [address] Babatunde Oliva MD Primary hypertension (Primary Dx); Hypokalemia; Benign prostatic hyperplasia without lower urinary tract symptoms; Dietary counseling; Exercise counseling; Overweight 01/11/2025 Orders Only [facility] [address] [place] [address] Babatunde Oliva MD Primary hypertension (Primary Dx); Decreased GFR; CKD stage 3a, GFR 45-59 ml/min ([facility]) 01/11/2025 Travel 01/08/2025 Telephone [facility] [address] [place] [address] Babatunde Oliva MD Chart Prep 11/09/2024 Refill [facility] [address], [place] [phone] Babatunde Oliva MD 11/04/2024 Telephone [facility] [address] [place] [address] Babatunde Oliva MD reschedule appt from Last 3 Months Social History Tobacco [...] Mass Index 25.88 01/11/2025 2:23 PM EDT Plan of Treatment Health Maintenance Due Date Last Done Comments CT Colonography 1952 Colonoscopy 1950 FIT DNA/Cologuard 1952 FIT 1952 FOBT 1950 Sigmoidoscopy 1950 Hepatitis C Screening 01/24/1970 Dental X-Ray: Full Mouth 04/19/2014 04/18/2011 Dental X-Ray: Bitewings 04/16/2019 04/15/20 18, 03/27/2017, 04/18/2011 Dental Oral Exam 03/14/2023 09/10/2022, , 04/15/2018, Additional history exists Dental Prophylaxis 09/24/2023 03/25/2023, 0 09/10/2022, 04/24/2019, Additional history exists Depression Screening 11/13/2023 11/12/2022, 11/13/19 23 Influenza Vaccine (#1) 2025 , 04/27/2019, 02/13/2018 Postponed from 12/28/2024 (Patient Refused) Alcohol/Substance Use Screening 01/11/2026 01/11/2025 COVID-19 Vaccine ( season) 2026 02/27/2021, 08/02/2020, 07/05/2020 Postponed from 12/28/2024 (Patient Refused) Colorectal Cancer Screening 01/11/2026 Postponed from 1950 (Patient Refused) DTaP/Tdap/Td Vaccines (1 - Tdap) 01/11/2026 Postponed from 01/24/1971 (Patient Refused) Pneumococcal Vaccine: 50+ Years (1 of 1 - PCV) 01/11/2026 Postponed from 01/24/2002 (Patient Refused) SDOH Screening 01/11/2026 01/11/2025 Tobacco Screening 01/11/2026 01/11/2025 Zoster Vaccines (1 of 2) 01/11/2026 Pos tponed from 01/24/2002 (Patient Refused) RSV Patients and Patients Aged 60 years [...] patient's age to complete this topic Meningococcal B Vaccine Aged Out No l onger eligible based on patient's age to complete [...] PANEL Routine 01/11/2025 2:52 PM EDT Hypokalemia Full PROPHYLAXIS - ADULT Routine 03/25/2023 2:00 [...] Maintenance Results * (ABNORMAL) Basic Metabolic Panel (01/11/2025 2:52 PM EDT) Sodium 143 135 - 145 mmol/L [facility] Potassium 4.6 3.3 - 5.1 mmol/L [facility] Chloride 108 96 - 108 mmol/L [facility] Carbon Dioxide 29 22 - 29 mmol/L [facility] Anion Gap 11(L) 12 - 20 [facility] Urea Nitrogen (BUN) 19(H) 9 - 16 mg/dL [facility] Creatinine, Serum 1.52(H) 0.5 - 1.4 mg/dL [facility] Estimated Glomerular Filt Rate 45 [facility] Comment:Chronic Kidney Disea se: Estimated GFR < 60 mL/min/1.06m1Uubhde Kidney Disease: Estimated GFR < 15 mL/min/1.73m2 Glucose 92 60 - 115 mg/dL [facility] Calcium 9.4 8.4 - 10.2 mg/dL [facility] Blood Venous blood specimen / Unknown 01/11/2025 2:52 PM EDT 01/11/2025 5:25 PM EDT Babatunde Oliva MD LAB BLOOD ORDERABLES Final Result Performing Organization Address City/[facility] Co de Phone Number [facility] [address] [place] [address] [phone] Lipid Panel, Standard (11/12/2022 3:27 PM EDT) Triglycerides 162 mg/dL [facility] Comment:Desirable Triglyceri de: less than 150 mg/dLBorderline High Triglyceride 150-199 mg/dLHigh Triglyceride: 200-499 mg/dLVery High Triglyceride: greater than or equal to 5OO mg/dL Cholesterol 207 mg/dL [facility] Comment:Desirable Cholestero l: less than 200 mg/dLBorderline High Cholesterol: 200-239 mg/dLHigh Cholesterol: greater than 239 mg/dL LDL Cholesterol Calculated 128 mg/dl [facility] Comment:Desirable LDL: less than 100 mg/dLNear Optimal/Above Optimal LDL: 110- 129 mg/dLBorderline High LDL: 130-159 mg/dLHigh LDL: 160-189 mg/dLVery High LDL: greater than or equal to 190 mg/dL HDL Cholesterol 47 mg/dL [facility] Comment:Desirable HDL: great er than 40 mg/dL Note: This HDL assay may give artificially low results in patients with liver disease. 11/12/2022 3:27 PM EDT 11/12/2022 5:41 PM EDT [facility] External Provider LAB BLO OD ORDERABLES Final Result Performing Organization Address City/[facility]/ZIP Co de Phone Number [facility] [address] [place] [address] [phone] from Last 3 Months or Most Recently Relevant to Health Maintenance Insurance [facility] STANDARD MEDICARE [facility] AD[facility] Care Teams Band Tier Relationship Specialty Start Date End Date Babatunde Oliva MD [address] [place] [phone] PCP - General Internal Medicine 04/29/18
[2025-01-12 08:59] LABS: ~HepC Num1 0.19 S/CO (0.00-0.79); ~Hepatitis C Antibody Nonreactive (Nonreactive)
== END 2025-01-11 14:51 | disposition home or self-care (01) ==
LOC: HO.CHCLDS 14:50
PROVIDERS: Visit Provider Internal Medicine
DX: E87.6 Hypokalemia (principal); I10 Essential (primary) hypertension; N40.0 Benign prostatic hyperplasia without lower urinary tract symptoms; E66.3 Overweight; Z71.3 Dietary counseling and surveillance; Z71.82 Exercise counseling
CPT/HCPCS: 36415; 80048; 86803